=== PATIENT | female | born 1960 | race Caucasian/White ===

== ENCOUNTER 2024-12-31 10:52 | Outpatient (RCR) | payer MEDICARE, OTHER, SELFPAY ==
--- NOTE | 2024-12-31 12:53 | PTOPEVAL1 ---
Assessment and note entered by Charleen Greco DPT Evaluation Information Assessment Status Evaluation Diagnosis L knee pain ICD-10 Condition Codes (PT) Pain in left knee M25.562 Onset 12/24/24 Subjective Information Patient reports she underwent L TKA on 12/24/24. She reports since surgery she has done her given exercises. She reports that she is having trouble sleeping, walking, getting up out of a chair and lifting her L leg. She reports no use of AD prior to surgery but now she is using a FWW. She reports she has 3 steps to get into her home. She reports she is icing and elevating her knee and is using pain meds at times. Reported Pain Level Pain Score 6: Self Report Assessment PT Clinical Summary Mrs. Price is a 64 year old female who presents to PT with L knee pain s/p L TKA on 12/24/24. She demonstrates decreased L knee ROM, decreased L knee strength and impaired gait limiting her ability to sleep, ambulate house hold and community distances and complete house hold tasks. She would benefit from skilled PT to address impairments and return to PLOF. Plan of Care Interventions Electrical Stimulation,Gait Training,Hot Pack/Cold Pack,Intermittent Compression Pump,Manual Therapy ,Neuro Re-education,Patient/Caregiver Education, Therapeutic Activities,Therapeutic Exercise PT Services Indicated Yes Treatment Frequency and 2x weekly for 10 visits Duration These treatments will address the objective and functional deficits as defined above. The patient will be advanced safely and appropriately in order for the patient to progress towards his/her prior level of function. Additional exercises will be introduced and as well as a comprehensive home exercise program upon discharge, if needed, ?to ensure carryover of functional gains achieved in the clinic. This treatment plan has been reviewed and agreement upon by the patient.
--- NOTE | 2025-01-10 11:15 | PCPTNOTE ---
Patient called & cancelled scheduled appointment this date.
--- NOTE | 2025-01-24 14:38 | PCPTNOTE ---
Patient called & cancelled scheduled appointment. Surgeon told her to hold therapy until she goes to pain management.
--- NOTE | 2025-02-11 11:51 | OPREHPOC ---
Outpatient Therapy Plan of Care This is a Multidisciplinary Plan of Care that may contain components documented by all disciplines (PT, OT, and ST.) PT Problem 1 PT Problem #1 Knowledge Deficit PT Goal 1 Goal / Goal Update Patient to demonstrates independence with HEP - met Target Visit 5 PT Problem 2 PT Problem #2 Pain PT Goal 1 Goal / Goal Update 1. Patient to report highest pain at 2/10 - partially met (occasional 3/10 pain) 2. Patient to report ability to sleep with no disturbance due to L knee pain -met Target Visit 10 PT Problem 3 PT Problem #3 Impaired Range of Motion PT Goal 1 Goal / Goal Update Patient to demonstrate 0-120 deg of L knee active ROM to return to stair navigation at PLOF -met Target Visit 10 PT Problem 4 PT Problem #4 Impaired Strength PT Goal 1 Goal / Goal Update Patient to demonstrate 4+/5 B LE strength to return to getting up out of the chair at PLOF - met Target Visit 10 Progress Met PT Problem 5 PT Problem #5 Impaired Functional Mobility PT Goal 1 Goal / Goal Update 1. Patient to demosntrate 20% improvement on LEFS -met 2. Patient to complete 6 min walk test of 800' without use of AD -met 3. Patient to report ability to stand for >30 min to return to house hold tasks -not met due to low back pain Target Visit 10 Progress Partially Met
--- NOTE | 2025-02-11 11:51 | PTOPPROG ---
Assessment and note entered by Karin Chavarria, PT Evaluation Information Assessment Status Evaluation Diagnosis L knee pain ICD-10 Condition Codes (PT) Pain in left knee M25.562,Aftercare following joint replacement surgery Z47.1 Onset 12/24/24 Subjective Information Loyda Dahl reports her left knee is doing well. She has been able to walk without a cane or walker and is also beginning to go up and down stairs with more ease. She notes stiffness continues and she still takes stairs one at a time going down but she can go up stairs reciprocally. She does note nerve pain around her knee as well. She will see her surgeon again on 02/18/25. She reports her lower back pain and left shoulder pain continue to be an issue. She notes more limitations with walking/standing due to her lower back than her left knee. Assessment PT Clinical Summary Loyda Price has completed 10 skilled PT visits for left knee pain following a left total knee arthroplasty performed on 12/24/24. She reports minimal left knee pain with daily activities and has been able to go up and down stairs with increased ease. She is not using an assistive device for ambulation. She notes limitations with bending and prolonged standing due to L4-5 degenerative changes. She demonstrates improved left knee AROM to normal ranges (0-130 degrees today); improved gait; and improved strength. She has met 75% of her PT goals with the only exceptions being standing for 30 minutes and pain no greater than 2/10. She is independent in a home exercise program for continue knee ROM and strengthening. Plan of Care Interventions Intermittent Compression Pump,Neuro Re-education, Patient/Caregiver Education,Therapeutic Activities ,Therapeutic Exercise PT Services Indicated Yes Treatment Frequency and PT on hold until follow up with MD on 02/18/25, Duration discharge if no additional orders are received. These treatments will address the objective and functional deficits as defined above. The patient will be advanced safely and appropriately in order for the patient to progress towards his/her prior level of function. Additional exercises will be introduced and as well as a comprehensive home exercise program upon discharge, if needed, ?to ensure carryover of functional gains achieved in the clinic. This treatment plan has been reviewed and agreement upon by the patient.
--- NOTE | 2025-04-01 17:00 | PCPTNOTE ---
patient completed POC and was released by
== END 2025-03-31 23:59 | disposition home or self-care (01) ==
LOC: CHSPT 10:52
PROVIDERS: Visit Provider Orthopaedic Surgery
DX: Z47.1 Aftercare following joint replacement surgery (principal); Z96.652 Presence of left artificial knee joint
CPT/HCPCS: 97014; 97016; 97110; 97112; 97150; 97161; 97530; G0283